=== PATIENT | male | born 1950 | race Caucasian/White ===

== ENCOUNTER 2020-06-09 17:32 | Observation (INO) | payer MEDICARE ==
[~2020-06-09] VITALS: Ht 177.8 cm; Wt 80.0 kg
--- NOTE | 2020-06-09 17:44 | NUR ---
patient provided urinal.
--- NOTE | 2020-06-09 17:59 | NUR ---
ERMD AT BEDSIDE FOR EVALUATION.
--- NOTE | 2020-06-09 18:10 | NUR ---
PATIENT BIB [facility] WITH CHIEF C/O POSSIBLE SEIZURE. PER EMS PATIENT WAS TAKING THE GARBAGE OUT AND WHEN HE CAME BACK INTO THE HOUSE HE STARTED FEELING DIZZY, SAT IN CHAIR AND FAMILY REPORTS PATIENT HAD LOC, INCONTINENCE OF URINE, AND FAMILY WITNESSED PATIENT "SHAKING." PER EMS WHEN PATIENT CAME TO HE WAS A&OX4, NO HISTORY OF SEIZURES. BLOOD SUGAR WAS 183 EN ROUTE. 18 GAUGE IV STARTED IN LEFT AC EN ROUTE. NO SIGNS OF ACUTE DISTRESS, CONNECTED TO CHILD AND FAMILY THERAPIST, SIDE RAILS UP X2, CALL LIGHT WITHIN REACH.
[2020-06-09] MEDS ORDERED: SODIUM CHLORIDE FLUSH 10ML SYR IVF ONE (18:30)
[2020-06-09 18:33] LABS: BASOPHILS % (AUTO) 1 % (0-1); EOSINOPHILS % (AUTO) 3 % (1-7); LYMPHOCYTES % (AUTO) 11 % (22-44); MEAN CORPUSCULAR HEMOGLOBIN 31.4 pg (27.5-34.5); MEAN CORPUSCULAR HGB CONC 33.2 g/dL (33.2-36.2); MEAN PLATELET VOLUME 7.6 fL (7.4-10.4); MONOCYTES % (AUTO) 10 % (2-9); NEUTROPHILS % (AUTO) 76 % (42-75); PLATELET COUNT 191 x10^3/uL (130-400); RED BLOOD COUNT 3.82 x10^6/uL (4.38-5.82); RED CELL DISTRIBUTION WIDTH 13.5 % (9.4-14.8)
[2020-06-09 18:35] LABS: ALBUMIN 3.3 g/dL (3.4-5.0); ANION GAP 4 mmol/L (5-15); CALCIUM 8.3 mg/dL (8.5-10.1); CHLORIDE 107 mmol/L (98-107); MD NO
--- NOTE | 2020-06-09 18:37 | NUR ---
PATIENT TO IMAGING FOR CAT SCAN.
--- NOTE | 2020-06-09 18:37 | NUR ---
DOMINIC DAVIS PHONE NUMBER [phone]. UPDATED ON POC.
[2020-06-09 18:41] LABS: CREATININE 1.83 mg/dL (0.7-1.3); TROPONIN I 0.017 ng/mL (0.000-0.045)
--- NOTE | 2020-06-09 19:04 | NUR ---
PATIENT BACK FROM CAT SCAN, URINAL PROVIDED, NO SIGNS OF ACUTE DISTRESS, SIDE RAILS UP X2, SEIZURE PRECAUTIONS IN PLACE, CALL LIGHT WITHIN REACH.
--- NOTE | 2020-06-09 20:01 | NUR ---
TASK RN, ANSWERING CALL LIGHT. URINAL EMPTIED, RECORDED OUTPUT IN CHART. CALL LIGHT WITHIN REACH.
[2020-06-09] MEDS ORDERED: ACETAMINOPHEN 325 MG TABLET PO PRN (20:30)
[2020-06-09] MEDS ORDERED: SODIUM CHLORIDE 0.9% 1,000 ML IV SCH (20:30)
[2020-06-09] MEDS ORDERED: LORazepam 2 MG/ML, 1ML IV PRN (20:30)
[2020-06-09] MEDS ORDERED: DOCUSATE 100 MG CAPSULE PO PRN (20:30)
--- NOTE | 2020-06-09 21:21 | NUR ---
FLUIDS HUNG, URINE COLLECTED AND WALKED TO LAB, PATIENT CONNECTED TO REGISTER OF DEEDS, WATCHING TV, NO SIGNS OF ACUTE DISTRESS, SIDE RAILS UP X2, SEIZURE PRECAUTIONS IN PLACE, CALL LIGHT WITHIN REACH.
--- NOTE | 2020-06-09 21:30 | NUR ---
REPORT GIVEN TO [facility] ON MEDICAL/TELEMETRY.
--- NOTE | 2020-06-09 21:54 | NUR ---
PATIENT TRANSFERRED IN STABLE CONDITION VIA GURNEY TO MEDICAL TELEMETRY WITH MAIL DISTRIBUTION SCHEME EXAMINER. ALL PATIENT BELONGINGS GATHERERED AND TAKEN WITH PATIENT.
[2020-06-09 21:58] LABS: CHLORIDE,URINE RANDOM 99 mmol/L; POTASSIUM,URINE RANDOM 11 mmol/L; SODIUM,URINE RANDOM 95 mmol/L
[2020-06-09 22:06] LABS: AMPHETAMINE SCREEN, URINE Negative (Negative); BARBITURATE SCREEN, URINE Negative (Negative); BENZODIAZEPINE SCREEN, URINE Negative (Negative); CANNABINOID SCREEN, URINE Negative (Negative); COCAINE SCREEN, URINE Negative (Negative); METHADONE SCREEN, URINE Negative (Negative); OPIATE SCREEN, URINE Negative (Negative)
[2020-06-09 22:11] VITALS: BP 187/113
[2020-06-09 22:12] VITALS: BP 158/101
[2020-06-09 22:13] VITALS: BP 112/76
[2020-06-09] MEDS: INSULIN LISPRO 100 UNITS/ML, PEN SQ-INSULIN SCH (22:24)
[2020-06-09 23:55] LABS: TROPONIN I 0.026 ng/mL (0.000-0.045)
[2020-06-10] VITALS (11 sets, daily range): BP systolic 112–199; BP diastolic 78–124
[2020-06-10] MEDS: LABETALOL 5MG/ML, 20ML IVPush PRN ×2 (00:28→08:01)
[2020-06-10] MEDS ORDERED: METF10007 PO (02:27)
[2020-06-10] MEDS ORDERED: TRAM100T39 PO (02:27)
[2020-06-10 05:01] LABS: BASOPHILS % (AUTO) 1 % (0-1); EOSINOPHILS % (AUTO) 3 % (1-7); LYMPHOCYTES % (AUTO) 20 % (22-44); MEAN CORPUSCULAR HEMOGLOBIN 31.9 pg (27.5-34.5); MEAN CORPUSCULAR HGB CONC 33.8 g/dL (33.2-36.2); MEAN PLATELET VOLUME 7.9 fL (7.4-10.4); MONOCYTES % (AUTO) 12 % (2-9); NEUTROPHILS % (AUTO) 65 % (42-75); PLATELET COUNT 192 x10^3/uL (130-400); RED BLOOD COUNT 3.83 x10^6/uL (4.38-5.82); RED CELL DISTRIBUTION WIDTH 13.4 % (9.4-14.8)
[2020-06-10 05:05] LABS: ANION GAP 5 mmol/L (5-15); CALCIUM 8.7 mg/dL (8.5-10.1); CHLORIDE 112 mmol/L (98-107)
[2020-06-10 05:11] LABS: CREATININE 1.27 mg/dL (0.7-1.3); TROPONIN I 0.022 ng/mL (0.000-0.045)
[2020-06-10 05:16] LABS: MD NO
[2020-06-10] MEDS: INSULIN LISPRO 100 UNITS/ML, PEN SQ-INSULIN SCH ×4 (07:00→20:24)
[2020-06-10] MEDS ORDERED: TIZANIDINE 4MG TABLET PO PRN (12:30)
[2020-06-10] MEDS ORDERED: MELO15TA24 PO (12:43)
[2020-06-10] MEDS ORDERED: GLIM1TAB7 PO (12:43)
[2020-06-10] MEDS ORDERED: LEVO100V9 PO (12:43)
[2020-06-10] MEDS ORDERED: POTA99TA24 PO (12:43)
[2020-06-10] MEDS ORDERED: TIZA4CAP PO (12:43)
[2020-06-10] MEDS ORDERED: TRAM50TA2 PO (12:43)
[2020-06-10] MEDS ORDERED: ATOR40TA78 PO (12:43)
[2020-06-10] MEDS ORDERED: [UNRECOGNIZED DRUG - CODE] PO (12:45)
[2020-06-11] VITALS (9 sets, daily range): BP systolic 55–158; BP diastolic 28–99
[2020-06-11] MEDS ORDERED: LEVOTHYROXINE 125 MCG TABLET PO SCH ×2 (06:00→09:00)
[2020-06-11] MEDS ORDERED: GLIMEPIRIDE 1 MG TABLET PO SCH ×2 (08:00→09:00)
[2020-06-11] MEDS: INSULIN LISPRO 100 UNITS/ML, PEN SQ-INSULIN SCH ×3 (08:39→16:00)
[2020-06-11] MEDS ORDERED: MELOXICAM 15 MG TABLET PO SCH (09:00)
[2020-06-11] MEDS ORDERED: POTASSIUM CHLORIDE 10 MEQ TABLET.ER PO SCH (09:00)
[2020-06-11] MEDS ORDERED: ATORVASTATIN 40 MG TABLET PO SCH ×2 (09:00)
[2020-06-11] MEDS ORDERED: FLUD0.1T PO (13:10)
[2020-06-11] MEDS ORDERED: FLUDROCORTISONE 0.1 MG TABLET PO SCH (13:30)
[2020-06-11] MEDS ORDERED: FLU VACC QS2020-21(6MOS UP)/PF 60MCG/0.5 ML SYR IM ONE (15:30)
== END 2020-06-11 17:47 | disposition home or self-care (01) ==
LOC: ED 20:13 → EDIP 20:18 → 4WST 21:52
PROVIDERS: ADMIT Family Medicine; ATTEND Family Medicine
DX: I95.1 Orthostatic hypotension (principal); R56.9 Unspecified convulsions; N17.9 Acute kidney failure, unspecified; E11.42 Type 2 diabetes mellitus with diabetic polyneuropathy; I10 Essential (primary) hypertension; R32 Unspecified urinary incontinence; Z79.899 Other long term (current) drug therapy; Z79.52 Long term (current) use of systemic steroids; Z23 Encounter for immunization
CPT/HCPCS: 36415; 70450; 70551; 71045; 80048; 80307; 82040; 82436; 82962; 84133; 84300; 84484; 85025; 90686; 93005; 93306; 95819; 96361; 96374; 96376; 97162; 99285; G0008; G0378; J1815; J7030